=== PATIENT | male | born 1945 | race African-American/Black ===

== ENCOUNTER → 2017-06-25 | Outpatient (CLI) | payer OTHER ==
[~2017-06-25] MED LIST: ASPIRIN EC325 MG PO; ATORVASTATIN CA40 MG PO; COREG6.25 MG PO; EFFIENT10 MG PO; FINASTERIDE5 MG PO; GABAPENTIN 100100 MG PO; HYDROCHLOROTH12.5 M1 PO; TRANDOLAPRIL4 MG PO; ZANTAC 150MG T150 M1 PO; ZANTAC 150MG T150 MG PO
--- NOTE | ~2017-06-25 | 2DMMODE ---
[facility] [place] [address] 2 D/M-MODE ECHOCARDIOGRAM Name: KEIKODORCAS CHAR Room #: REG [facility]#: [id number] Admission: 06/25/17 Attend Phys: Sebastien Rain MD Discharge: Date of : 45 Date of Service: 06/25/17 1208 Report #: [id number] THIS REPORT FOR: //name// APPROVED REPORT Study performed: 06/25/2017 11:16:30 EXAM: Comprehensive 2D, Doppler, and color-flow Echocardiogram Patient Location: Out-Patient Room #: Echo lab Status: routine BSA: 2.31 HR: 67 bpm BP: 136/74 mmHg Other Information Study Quality: Good Indications CAD 2D Dimensions RVDd: 40.93 mm LVEF(%): 39.90 (>50%) IVSd: 12.64 (7-11mm) LVOT Diam: 24.91 (18-24mm) LVDd: 56.99 mm PWd: 12.66 (7-11mm) Ascending Ao: 35.93 (22-36mm) LVDs: 45.76 (25-40mm) Aortic Root: 37.27 mm IVC: 18.00 mm Johnson's LVEF: 39.90 % Volumes Left Atrial Volume (Systole) Single Plane 4CH: 47.05 mL Single Plane 2CH: 58.83 mL LA ESV Index: 25.00 mL/m2 Aortic Valve AoV Peak Romario.: 1.22 m/s AO Peak Gr.: 5.97 mmHg LVOT Max P.27 mmHg LVOT Max V: 0.90 m/s TONY Vmax: 3.61 cm2 Mitral Valve E/A Ratio: 1.1 MV Decel. Time: 231.47 ms MV E Max Romario.: 0.87 m/s [facility] [place] [address] 2 D/M-MODE ECHOCARDIOGRAM Name: DORCAS ADEN Room #: REG [facility]..#: [id number] Admission: 06/25/17 Attend Phys: Sebastien Rain MD Discharge: Date of : 45 Date of Service: 06/25/17 1208 Report #: [id number] MV A Romario.: 0.76 m/s MV PHT: 67.13 ms IVRT: 96.89 ms Pulmonary Valve PV Peak Romario.: 0.96 m/s PV Peak Gr.: 3.67 mmHg Pulmonary Vein P Vein S: 0.56 m/s P Vein A: 0.26 m/s P Vein D: 0.45 m/s P Vein A Dur.: 124.6 msec P Vein S/D Ratio: 1.24 Tricuspid Valve TR Peak Romario.: 2.54 m/s TR Peak Gr.: 25.81 mmHg PA Pressure: 30.00 mmHg Left Ventricle The left ventricle is normal size. Mild concentric left ventricular hypertrophy. Left ventricular systolic function is mildly decreased. LVEF is 45%. Grade II - pseudonormal filling dynamics. Right Ventricle The right ventricle is normal size. The right ventricular systolic function is normal. Atria The left atrium size is normal. The right atrium size is normal. Aortic Valve The aortic valve is normal in structure. No aortic regurgitation is present. There is no aortic valvular stenosis. Mitral Valve The mitral valve is normal in structure. Mild mitral regurgitation. No evidence of mitral valve stenosis. Tricuspid Valve The tricuspid valve is normal in structure. There is trace tricuspid regurgitation. Estimated PAP 30 mmHg. There is no pulmonary hypertension. Pulmonic Valve The pulmonary valve is normal in structure. There is no pulmonic valvular regurgitation. [facility] [address] [place] [address] 2 D/M-MODE ECHOCARDIOGRAM Name: KEKIODORCAS Room #: REG [facility]#: [id number] Admission: 06/25/17 Attend Phys: Sebastien Rain MD Discharge: Date of : 45 Date of Service: 06/25/17 1208 Report #: [id number] Great Vessels The aortic root is normal in size. IVC is normal in size and collapses >50% with inspiration. Pericardium There is no pericardial effusion. <Conclusion> The left ventricle is normal size. Mild concentric left ventricular hypertrophy. Left ventricular systolic function is mildly decreased. Grade II - pseudonormal filling dynamics. The right ventricle is normal size. The left atrium size is normal. There is no aortic valvular stenosis. Mild mitral regurgitation. There is trace tricuspid regurgitation. Estimated PAP 30 mmHg. <ELECTRONICALLY SIGNED> By: Sebastien Rain MD 06/25/178 07 07 Sebastien Rain MD /INF
== END ==
LOC: CV 07:31
DX: I25.10 Atherosclerotic heart disease of native coronary artery without angina pectoris (principal); I34.0 Nonrheumatic mitral (valve) insufficiency

== ENCOUNTER → 2017-06-26 | Outpatient (CLI) | payer OTHER ==
[2017-06-26 12:14] LABS: BASOPHILS 0.4 % (0.0-2.0); EOSINOPHILS 3.7 % (0.0-3.0); HEMOGLOBIN 11.7 gm/dL (14.0-18.0); LYMPHOCYTES 26.3 % (24.0-44.0); MCH 26.6 pg (26.0-34.0); MCHC 32.6 g/dL (28.0-37.0); MCV 81.7 fL (80.0-100.0); MONOCYTES 8.1 % (1.0-8.0); PLATELET COUNT 187 thou/uL (150-400); POLYS 61.5 % (36.0-66.0); RBC 4.41 mil/uL (4.50-6.00); RDW 18.3 % (10.5-14.5); WBC 9.8 thou/uL (4.0-11.0)
== END ==
LOC: RAD 11:52
PROVIDERS: Internal Medicine Pulmonary Disease
DX: R05 Cough (principal); M25.78 Osteophyte, vertebrae; K21.9 Gastro-esophageal reflux disease without esophagitis; Z72.0 Tobacco use